=== PATIENT | female | born 1965 | race Two or more races ===

== ENCOUNTER 2023-05-14 09:06 | Emergency (ER) | payer OTHER ==
[2023-05-14 09:26] VITALS: TEMP 97.5; BMI 26.0
[2023-05-14] MEDS ORDERED: ACETAMINOPHEN 500 MG TABLET (FP) PO ONE (09:29)
[2023-05-14] MEDS ORDERED: ACETAMINOPHEN 325 MG TABLET (FP) ONE (10:24)
[2023-05-14 11:48] VITALS: BP 104/67; RESP 15
[2023-05-14 11:53] VITALS: PULSE 68
== END 2023-05-14 12:00 | disposition home or self-care (01) ==
LOC: JER 09:06
DX: S00.03XA Contusion of scalp, initial encounter (principal); W10.9XXA Fall (on) (from) unspecified stairs and steps, initial encounter; Y92.811 Bus as the place of occurrence of the external cause
CPT/HCPCS: 70450-TC; 72125-TC; 99284-25